=== PATIENT | male | born 1985 | race Caucasian/White ===

== ENCOUNTER 2017-05-08 09:44 | Emergency (ER) | payer MEDICAID ==
[2017-05-08 09:52] VITALS: BP 137/88; PULSE 97; RESP 16; TEMP 97.5; O2SAT 95
[2017-05-08] MEDS ORDERED: FLUORESCEIN SODIUM 1 MG STRIP OP ONE (10:54)
[2017-05-08] MEDS ORDERED: PROPARACAINE 0.5% 15 ML OPHT DROP OP ONE (10:54)
--- NOTE | 2017-05-08 11:13 | EDPHY ---
H & P Smoking Status: Current every day smoker Time Seen by Provider: 05/08/17 10:53 HPI/ROS: CHIEF COMPLAINT: Foreign body sensation left eye HISTORY OF PRESENT ILLNESS: 32-year-old male with no corrective lens use history complaining of foreign body sensation when he was walking by a branch that impacted him in the left eye. No visual acuity changes. Occurred shortly prior to arrival. Tetanus is up-to-date. PHYSICAL EXAM (Prior to examination, patient consented to physical exam, hands were washed and my usual and customary physical exam procedures followed) 1) GENERAL: Well-developed, well-nourished, alert and oriented. Appears to be in no acute distress. 2) HEAD: Normocephalic 3) ENT: sclera anicteric 4) LUNGS: Breathing comfortably. 5) OCULAR EXAM: Visual Acuity: noted from Nurse's notes. Pupils:equal round and reactive to light EOMI Lids: no edema or swelling, upper and lower lids were everted and no foreign bodies were visualized, no areas of increased fluorescein uptake. Skin: no proptosis, no periorbital erythema or swelling, no vesicles, no pain with extraocular movements. Conjunctivae: not injected, no discharge, negative Donya test. Cornea: there is a would appearing foreign body at the 5 o'clock position which is removed with an 18 gauge needle. Subsequent floor seen examination reveals an area of uptake at this position with negative Donya. Anterior chamber:normal, no hyphema or hypopyon (Cm,D Elsa) Constitutional: Initial Vital Signs Temperature (C) 36.4 C 05/08/17 09:50 Heart Rate 97 05/08/17 09:50 Respiratory Rate 16 05/08/17 09:50 Blood Pressure 137/88 H 05/08/17 09:50 O2 Sat (%) 95 05/08/17 09:50 O2 Delivery Mode Room Air Allergies/Adverse Reactions: No Known Allergies Allergy (Unverified 11/02/15 23:45) Home Medications: Medication Instructions Recorded NK [No Known Home Meds] 11/02/15 MDM/Departure - MDM Medications Given: Discontinued Medications Fluorescein Sodium (Qgqno-M-Gizbk) 1 mg OP EDNOW ONE Stop: 05/08/17 10:55 Last Admin: 05/08/17 11:25 Dose: 1 mg Ofloxacin (Ocuflox 0.3% Opht Drops Prepack) 1 btl TAKEHOME EDNOW ONE Stop: 05/08/17 11:16 Last Admin: 05/08/17 11:44 Dose: 1 btl Proparacaine HCl (Alcaine 0.5%) 1 drops OP EDNOW ONE Stop: 05/08/17 10:55 Last Admin: 05/08/17 11:25 Dose: 1 drops ED Course/Re-evaluation: This patient had a foreign body at the 5 o'clock position with no evidence of ruptured globe. This foreign body was removed by myself. No other foreign bodies are visualized in the upper lower lids. He is started on prophylactic antibiotics and recommend follow up with Ophthalmology on-call in 24 hours. He is comfortable with this plan.Care of patient under supervision of secondary supervising physician Dr Jordan . (Delta Pabon) The patient was evaluated and managed by the physician activity assistant. I have reviewed this chart and I agree with the findings and plan of care as documented , as indicated by my signature. I am the secondary supervising physician. ( Pattie Jordan) - Depart Disposition: Home, Routine, Self-Care Clinical Impression: Foreign body of left eye Qualifiers: Encounter type: initial encounter Qualified Code(s): T15.92XA - Foreign body on external eye, part unspecified, left eye, initial encounter Condition: Good Instructions: Ofloxacin (Into the eye), Eye Foreign Body (ED) Additional Instructions: Return to the ER if you develop new or worsening symptoms or any other symptoms that concern you. Referrals: Margaret Aguillon MD [Medical Doctor] - 1 day without fail
[2017-05-08] MEDS ORDERED: OFLOXACIN 0.3% SOLN PREPACK OPHT.BTL TAKEHOME ONE (11:15)
== END 2017-05-08 12:04 | disposition home or self-care (01) ==
PROC: 08C1XZZ Extirpation of Matter from Left Eye, External Approach (ICD-10-PCS; principal; 2017-05-08)
DX: T15.02XA Foreign body in cornea, left eye, initial encounter (principal); F17.200 Nicotine dependence, unspecified, uncomplicated; X58.XXXA Exposure to other specified factors, initial encounter

== ENCOUNTER 2017-11-25 11:40 | Emergency (ER) | payer MEDICAID ==
[2017-11-25] MEDS ORDERED: TDAP ADULT 0.5 ML INJ (BOOSTRIX) IM ONE (12:05)
--- NOTE | 2017-11-25 12:14 | EDPHY ---
H & P Stated Complaint: Lacerated R arm metal sheeting Time Seen by Provider: 11/25/17 12:06 HPI/ROS: HPI: This is a 32-year-old male who presents with Chief Complaint: Lacerated R arm metal sheeting Location: Right upper arm Quality: Laceration Duration: Prior to arrival Signs and Symptoms: + bleeding, no radiation, no numbness, no weakness, no tingling, no incontinence, no decreased range of motion, no swelling, no pain, no fever Timing: Acute Severity: Moderate Context: Patient is right-hand dominant, presents with accidentally cutting his right upper arm just above his elbow joint prior to arrival. Patient was standing on a ladder cleaning out his gutter which when he lost his balance and started to fall. He reports that he scraped his right upper arm on the metal gutter. He reports that he felt immediate, constant, moderate pain and then started to bleed. He applied direct pressure and was able to walk down the ladder and drive himself to the emergency room. Tetanus status unknown. Denies any paresthesias/weakness/decreased range of motion. Modifying Factors: Direct pressure Comment: ROS: see HPI Constitutional: No fever, no chills, no weight loss Eyes: No blurred vision Respiratory: No shortness of breath, no cough Cardiovascular: No chest pain Gastrointestinal: No nausea, no vomiting no diarrhea Genitourinary: No dysuria Extremities: No myalgias Neurologic: No weakness, no numbness Skin: No rashes Hematologic: No bruising, no bleeding MEDICAL/SURGICAL/SOCIAL HISTORY: Medical history: Generally healthy. Does not take any regular medications. Surgical history: Denies Social history: Current every day smoker. Employed. CONSTITUTIONAL: Polite and cooperative adult white male, awake and alert, no obvious distress HEENT: Atraumatic and normocephalic. NECK: supple, no midline tenderness, flexion 45 degrees, extension 45 degrees, right and left lateral flexion 45 degrees. No meningismus. Cardiovascular: Normal S1/S2, regular rate, regular rhythm, without murmur rub or gallop. PULMONARY/CHEST: Symmetrical and nontender. no crepitus. Clear to auscultation bilaterally. Good air movement. No accessory muscle usage. ABDOMEN: Soft, nondistended, nontender, no ecchymosis. PELVIC: no pain with rocking; bilateral hips flexion 125 degrees, extension 30 degrees, with no pain internal rotation and no pain external rotation. BACK: No midline tenderness, no paraspinous spasm, deep tendon reflexes 2/2, no pain with straight leg raise, No foot drop. Achilles reflexes are equal bilaterally. Able to walk on heels and toes without difficulty. EXTREMITIES: 2/2 pulses, strength 5/5, right upper arm 3 in above the elbow joint shows 10 cm x 3 cm, deep, complex laceration. Right ELBOW: Full extension to 180, flexion to 150, no tenderness over medial epicondyle, no tenderness over lateral epicondyle, no effusion. DIP/PIP/MCP flexion/extension intact with good light touch sensation. no deformities, no clubbing, no cyanosis or edema. NEUROLOGICAL: no focal neuro deficits. GCS 15. Light touch sensation intact. SKIN: Warm and dry, no erythema. no rash. Good capillary refill. Source: Patient Exam Limitations: No limitations - Personal History Current Tetanus/Diphtheria Vaccine: Unsure Current Tetanus Diphtheria and Acellular Pertussis (TDAP): Unsure - Medical/Surgical History Hx Asthma: No Hx Chronic Respiratory Disease: No Hx Diabetes: No Hx Cardiac Disease: No Hx Renal Disease: No Hx Cirrhosis: No Hx Alcoholism: No Hx HIV/AIDS: No Hx Splenectomy or Spleen Trauma: No Other PMH: denies - Social History Smoking Status: Current every day smoker Constitutional: Initial Vital Signs Temperature (C) 37.0 C 11/25/17 11:50 Heart Rate 88 11/25/17 11:50 Respiratory Rate 20 11/25/17 11:50 Blood Pressure 168/82 H 11/25/17 11:50 O2 Sat (%) 98 11/25/17 11:50 O2 Delivery Mode Room Air Allergies/Adverse Reactions: No Known Allergies Allergy (Unverified 11/02/15 23:45) Home Medications: Medication Instructions Recorded NK [No Known Home Meds] 11/02/15 Medical Decision Making Procedures: Procedure: Laceration repair. Verbal consent was obtained from the patient. The right upper arm 3 in above the elbow joint shows 10 cm x 3 cm, deep, complex laceration. was anesthetized in the usual fashion using 10 mL of 0.5% bupivacaine with epinephrine. The wound was irrigated, draped and explored to its base with a gloved finger. Was accessory capillary injury that needed to be tied off with a silk. No tendon injury was identified. The wound was repaired with 2 layer closure; #8, 4 0 Vicryl horizontal buried sutures and on the subcutaneous #18 4 0 Prolene in simple interrupted pattern. Xeroform and clean sterile dressing applied. The procedure was performed by myself. Procedure: Splint placement. A long-arm posterior splint and sling was applied by the Emergency Room hazmat technician. After application of the splint I returned and re-examined the patient. The splint was adequately immobilizing the joint and distal to the splint the patient's circulation and sensation was intact. ED Course/Re-evaluation: Tetanus booster given. Laceration repaired using a 2 layer closure and capillary tie off. Placed in posterior long-arm splint for immobilization for the next 3 days to prevent wound dehiscence and given sling. Verbal and written wound care instructions provided No signs of neurovascular compromise/tenting of skin/compartment syndrome/ extremities and joints examined above and below area of concern and are neurovascularly intact. Work note provided per request. No signs of neurovascular compromise/tenting of skin/compartment syndrome/ extremities and joints examined above and below area of concern and are neurovascularly intact. This patient was seen under the supervision of my secondary supervising physician. I evaluated care for this patient independently. Discussed this patient with Dr. Rose who did not see the patient. Differential Diagnosis: Differential diagnosis includes but is not limited to laceration, nerve injury, tendon injury, joint involvement. - Data Points Medications Given: Discontinued Medications Diphtheria/Tetanus/Acell Pertussis (Boostrix) 0.5 ml IM .ONCE ONE Stop: 11/25/17 12:06 Last Admin: 11/25/17 12:14 Dose: 0.5 ml Departure - Departure Disposition: Home, Routine, Self-Care Clinical Impression: Laceration of right upper arm without complication Qualifiers: Encounter type: initial encounter Qualified Code(s): S41.111A - Laceration without foreign body of right upper arm, initial encounter Condition: Good Instructions: Care For Your Stitches (ED), Laceration (ED) Additional Instructions: Keep the splint dry and in place for 3 days. After 3 days, you may remove the splint and dressing; wash the site daily with mild soap and water; then pat dry. Take Tylenol 650 mg every 4 hours and/or Ibuprofen 600 mg every 8 hours with food as needed for pain. If at any time you have numbness or any concerns, follow-up with Orthopedics for further evaluation. Wound Care Follow-Up: Removal of sutures in [10-14] days. Suture removal is complimentary in uncomplicated cases. Infection or abnormal findings would require reevaluation by the MD. In that case, you may be billed. Return to the ER immediately if you experience new or worsening pain, discoloration, numbness, tingling, or any other symptoms that concern you. Referrals: Rhina Whipple MD [Medical Doctor] - Follow Up Only If Needed
[2017-11-25 13:33] VITALS: BP 142/89
== END 2017-11-25 13:32 | disposition home or self-care (01) ==
PROC: 0HQHXZZ Repair Right Upper Leg Skin, External Approach (ICD-10-PCS; principal; 2017-11-25)
DX: S41.111A Laceration without foreign body of right upper arm, initial encounter (principal); F17.200 Nicotine dependence, unspecified, uncomplicated; Z23 Encounter for immunization; W26.8XXA Contact with other sharp object(s), not elsewhere classified, initial encounter; Y99.8 Other external cause status
CPT/HCPCS: A4565

== ENCOUNTER 2017-12-19 09:39 | Emergency (ER) | payer MEDICAID ==
--- NOTE | 2017-12-19 10:14 | EDPHY ---
H & P Time Seen by Provider: 12/19/17 10:00 HPI/ROS: CHIEF COMPLAINT: Toothache times several days HISTORY OF PRESENT ILLNESS: 32-year-old male with no primary care provider or primary dentist complaining of left molar pain for the past several days. No fetid odor. No trismus or drooling. No fever or chills. No change in voice. PHYSICAL EXAM (Prior to examination, patient consented to physical exam, hands were washed and my usual and customary physical exam procedures followed) 1) GENERAL: Well-developed, well-nourished, alert and oriented. Appears to be in no acute distress. 2) HEAD: Normocephalic 3) HEENT: sclera anicteric . Teeth 18 and 19 are tender to percussion with no signs of apical abscess, floor of mouth soft no evidence of Florin's angina, submental and submandibular spaces are soft no induration no tenderness. Facial features are symmetrical , nasolabial fold symmetrical. No facial swelling. 4) LUNGS: Breathing comfortably. Smoking Status: Current every day smoker Constitutional: Initial Vital Signs Temperature (C) 37 C 12/19/17 09:45 Heart Rate 100 12/19/17 09:45 Respiratory Rate 16 12/19/17 09:45 Blood Pressure 168/107 H 12/19/17 09:45 O2 Sat (%) 97 12/19/17 09:45 O2 Delivery Mode Room Air Allergies/Adverse Reactions: No Known Allergies Allergy (Verified 12/19/17 09:44) Home Medications: Medication Instructions Recorded Amoxicillin Trihydrate 500 mg PO Q8 7 Days cap 12/19/17 [Amoxicillin 500mg cap] Ibuprofen [Motrin (*)] 800 mg PO Q6 #15 tab 12/19/17 MDM/Departure - MDM Procedures: Procedure dental nerve block ED Course/Re-evaluation: Doubt Florin's angina, doubt deep space infection. Not think that imaging studies are indicated. Dental nerve block performed by myself resulting in local anesthesia and patient feeling improvement. He will need follow-up with dental aid. Started on antibiotics. Given follow-up information. Given usual and customary discharge precautions and information. He feels comfortable being discharged. I saw this patient independently based on established practice protocols. Care of patient under supervision of primary Supervising physician Dr Daniels . - Depart Disposition: Home, Routine, Self-Care Clinical Impression: Odontalgia Condition: Good Instructions: Toothache (ED) Additional Instructions: Return to the ER immediately if you cannot swallow, have drooling, fevers, neck stiffness, cannot open your jaw, or any other symptoms that concern you. Prescriptions: Amoxicillin Trihydrate [Amoxicillin 500mg cap] 500 mg PO Q8 7 Days cap Ibuprofen [Motrin (*)] 800 mg PO Q6 #15 tab Referrals: Dental Aid [Outside] - As per Instructions
[2017-12-19 10:28] VITALS: BP 164/96
== END 2017-12-19 10:28 | disposition home or self-care (01) ==
PROC: 3E0X3BZ Introduction of Anesthetic Agent into Cranial Nerves, Percutaneous Approach (ICD-10-PCS; principal; 2017-12-19)
DX: K08.89 Other specified disorders of teeth and supporting structures (principal); F17.200 Nicotine dependence, unspecified, uncomplicated

== ENCOUNTER 2018-05-31 18:25 | Emergency (ER) | payer MEDICAID ==
--- NOTE | 2018-05-31 18:48 | EDPHY ---
H & P Stated Complaint: SLIPPED ON ICE AT 4PM IMPACTED COCCYX/DENIES OTHER INJ Time Seen by Provider: 05/31/18 18:44 HPI/ROS: CHIEF COMPLAINT: Tailbone injury HISTORY OF PRESENT ILLNESS: Patient is a 33-year-old man who slipped on the ice and fell in a sitting position. He had immediate pain to his tailbone. He states that it is now been 2-3 hours and the pain is not improved. No weakness or numbness. He is able to ambulate without difficulty but has pain when sitting. No bowel or bladder abnormalities. He did not hit his head. No neck pain. He has not taken any pain medications. Severity: Moderate Modifying factors: None REVIEW OF SYSTEMS: Constitutional: denies: chills, fever, recent illness, recent injury EENTM: denies: blurred vision, double vision, nose congestion Respiratory: denies: cough, shortness of breath Cardiac: denies: chest pain, irregular heart rate, lightheadedness, palpitations Gastrointestinal/Abdominal: denies: abdominal pain, diarrhea, nausea, vomiting, blood streaked stools Genitourinary: denies: dysuria, frequency, hematuria, pain Musculoskeletal: See HPI Skin: denies: lesions, rash, jaundice, bruising Neurological: denies: headache, numbness, paresthesia, tingling, dizziness, weakness Hematologic/Lymphatic: denies: blood clots, easy bleeding, easy bruising Immunologic/allergic: denies: HIV/AIDS, transplant 10 systems reviewed and negative except as noted EXAM: GENERAL: Well-appearing, well-nourished and in no acute distress. HEAD: Atraumatic, normocephalic. EYES: Pupils equal round and reactive to light, extraocular movements intact, sclera anicteric, conjunctiva are normal. ENT: TMs normal, nares patent, oropharynx clear without exudates. Moist mucous membranes. NECK: Normal range of motion, supple without lymphadenopathy or JVD. LUNGS: Breath sounds clear to auscultation bilaterally and equal. No wheezes rales or rhonchi. HEART: Regular rate and rhythm without murmurs, rubs or gallops. ABDOMEN: Soft, nontender, normoactive bowel sounds. No guarding, no rebound. No masses appreciated. BACK: No CVA tenderness, no spinal tenderness, step-offs or deformities EXTREMITIES: Pain to the tailbone area, no obvious swelling or deformity. Ambulates without difficulty. NEUROLOGICAL: Cranial nerves II through XII grossly intact. Normal speech, normal gait. 5/5 strength, normal movement in all extremities, normal sensation , normal reflexes PSYCH: Normal mood, normal affect. SKIN: Warm, dry, normal turgor, no visible rashes or lesions. Source: Patient Exam Limitations: No limitations - Personal History Current Tetanus Diphtheria and Acellular Pertussis (TDAP): Yes - Medical/Surgical History Hx Asthma: No Hx Chronic Respiratory Disease: No Hx Diabetes: No Hx Cardiac Disease: No Hx Renal Disease: No Hx Cirrhosis: No Hx Alcoholism: No Hx HIV/AIDS: No Hx Splenectomy or Spleen Trauma: No Other PMH: denies - Family History Significant Family History: No pertinent family hx - Social History Smoking Status: Former smoker Alcohol Use: Sober Constitutional: Initial Vital Signs Temperature (C) 36.6 C 05/31/18 18:29 Heart Rate 94 05/31/18 18:29 Respiratory Rate 17 05/31/18 18:29 Blood Pressure 145/98 H 05/31/18 18:29 O2 Sat (%) 96 05/31/18 18:29 O2 Delivery Mode Room Air Allergies/Adverse Reactions: No Known Allergies Allergy (Verified 05/31/18 18:28) Home Medications: Medication Instructions Recorded NK [No Known Home Meds] 05/31/18 Medical Decision Making - Diagnostics Imaging: Discussed imaging studies w/ call taker Radiologist ED Course/Re-evaluation: Patient does appear to have a broken tailbone. We discussed comfort measures including sitting on a donut, taking anti-inflammatories and ice. Patient understands and agrees with this plan. He declines further workup or testing. Differential Diagnosis: Partial list of the Differential diagnosis considered include but were not limited to; contusion, fracture and although unlikely based on the history and physical exam, I also considered assault, infection. I discussed these differential diagnoses and the plan with the patient as well as the usual and expected course. The patient understands that the diagnosis is provisional and that in medicine we are not always correct and that further workup is often warranted. Usual and customary warnings were given. All of the patient's questions were answered. The patient was instructed to return to the emergency department should the symptoms at all worsen or return, otherwise to followup with the physician as we discussed. - Data Points Medications Given: Discontinued Medications Ibuprofen (Motrin) 800 mg PO EDNOW ONE Stop: 05/31/18 19:10 Last Admin: 05/31/18 19:11 Dose: 800 mg Departure - Departure Disposition: Home, Routine, Self-Care Clinical Impression: Sacral fracture, closed Qualifiers: Encounter type: initial encounter Zone of sacrum fracture: unspecified portion of sacrum Qualified Code(s): S32.10XA - Unspecified fracture of sacrum, initial encounter for closed fracture Condition: Fair Instructions: Sacral Fracture (ED) Referrals: NONE *PRIMARY CARE P,. [Primary Care Provider] - As per Instructions Ed Duval MD [Medical Doctor] - As per Instructions
[2018-05-31] MEDS ORDERED: IBUPROFEN 800 MG TAB PO ONE (19:09)
[2018-05-31 19:20] VITALS: BP 150/92
== END 2018-05-31 19:17 | disposition home or self-care (01) ==
DX: S32.10XA Unspecified fracture of sacrum, initial encounter for closed fracture (principal); W00.0XXA Fall on same level due to ice and snow, initial encounter; Y92.9 Unspecified place or not applicable; Y93.9 Activity, unspecified; Y99.9 Unspecified external cause status

== ENCOUNTER 2018-10-26 09:51 | Emergency (ER) | payer MEDICAID ==
--- NOTE | 2018-10-26 09:58 | EDPHY ---
H & P Stated Complaint: LUE swelling Time Seen by Provider: 10/26/18 09:58 - Personal History Current Tetanus/Diphtheria Vaccine: Yes - Medical/Surgical History Hx Asthma: No Hx Chronic Respiratory Disease: No Hx Diabetes: No Hx Cardiac Disease: No Hx Renal Disease: No Hx Cirrhosis: No Hx Alcoholism: No Hx HIV/AIDS: No Hx Splenectomy or Spleen Trauma: No Other PMH: denies - Social History Smoking Status: Current some day smoker Constitutional: Initial Vital Signs Heart Rate 104 H 10/26/18 09:53 Respiratory Rate 16 10/26/18 09:53 Blood Pressure 169/105 H 10/26/18 09:53 O2 Sat (%) 97 10/26/18 09:53 O2 Delivery Mode Room Air Allergies/Adverse Reactions: No Known Allergies Allergy (Verified 10/26/18 09:55) Home Medications: Medication Instructions Recorded Ibuprofen [Motrin] 800 mg PO Q8 #20 tab 10/26/18 Medical Decision Making - Diagnostics Imaging Results: Imaging Impressions Extremity Venous Study 10/26/18 10:02 Impression: No evidence of DVT. Findings discussed with Armen Rose MD 10/26/2018 at 10:45. Imaging: Discussed imaging studies w/ call center agent Radiologist, I viewed and interpreted images myself ED Course/Re-evaluation: CHIEF COMPLAINT: Left arm pain and swelling HISTORY OF PRESENT ILLNESS: The patient is a 33 y/o male complaining of worsening left forearm swelling and pain onset 3 days ago. He was more active that day, but cannot think of a specific movement or activity that could have caused the pain. As the pain has become worse, he has had more limited mobility. He denies IV drug use, insect bites, or breaks in the skin. No fever, headache, body aches, lightheadedness, chest pain, heart palpitations, shortness of breath, cough, abdominal pain, urinary or bowel complaints, numbness, paresthesias. REVIEW OF SYSTEMS: A comprehensive 10 system review of systems is otherwise negative aside from elements mentioned in the history of present illness and medical decision making. PHYSICAL EXAM: HR, BP, O2 Sat, RR. Temp noted General Appearance: Alert, well hydrated, appropriate, and non-toxic appearing. Head: Atraumatic without scalp tenderness or obvious injury Eyes: Pupils equal, round, reactive to light and accommodation, EOMI, no trauma , no injection. Ears: Clear bilaterally, no perforation, normal landmarks Nose: Atraumatic, no rhinorrhea, clear. Throat: There is no erythema or exudates, no lesions, normal tonsils, mucus membranes moist. Neck: Supple, 2+ carotid upstroke, nontender, no lymphadenopathy. Respiratory: No retractions, no distress, no wheezes, and no accessory muscle use. Lungs are clear to auscultation bilaterally. Cardiovascular: Regular rate and rhythm, no murmurs, rubs, or gallops. Bilateral carotid, radial, dorsalis pedis, and posterior tibial pulses intact. Good capillary refill all extremities. Gastrointestinal: Abdomen is soft, nontender, non-distended, no masses, no rebound, no guarding, no peritoneal signs. Musculoskeletal: Firm and swollen left forearm. No signs of trauma. Otherwise normal active ROM of all extremities, atraumatic. Neurological: Alert, appropriate, and interactive. The patient has normal DTRs and non-focal cranial nerves, motor, sensory, and cerebellar exam. Skin: No rashes, good turgor, no nodules on palpation. Past medical history: Denies Past surgical history: Denies Family history: Denies Social history: Lives in [place], single, self-employed DIAGNOSTICS/PROCEDURES/CRITICAL CARE TIME: Left upper extremity US: No acute findings. Left upper extremity MRI: Myositis and edema of the dorsal forearm muscles DIFFERENTIAL DIAGNOSIS: The differential diagnosis for the patient's arm swelling included but was not limited to hypoalbuminemia, congestive heart failure, cor pulmonale, venous stasis, trauma, and DVT. MEDICAL DECISION MAKING: The patient is a 33 y/o male presenting with worsening left forearm swelling and pain causing more limited ROM, onset 3 days ago. He was more active that day , but cannot think of a specific movement or activity that could have caused the pain. As the pain has become worse, he has had more limited mobility. He denies IV drug use, insect bites, or breaks in the skin. No fever, On exam he has a firm and swollen left forearm. Patient will need an US and then an MRI if there are no significant findings. 1047: I spoke with Dr. Wallis, radiologist, regarding this patient. There are not acute findings on the US; left upper extremity MRI ordered. 1054: Reassessed patient and discussed imaging findings. He is comfortable with plan for MRI. 1336: I spoke with Dr. Wallis, who reports that the patient has myositis and edema of the dorsal forearm muscles. 6mg PO Decadron administered. 1337: Reassessed patient and discussed imaging findings. I have advised him to take Motrin as directed and follow up with an orthopedic surgeon. Return precautions provided; patient is comfortable with this plan. Departure - Departure Disposition: Home, Routine, Self-Care Clinical Impression: Pain and swelling of forearm Qualifiers: Laterality: left Qualified Code(s): M79.632 - Pain in left forearm Myositis Qualifiers: Myositis type: unspecified type Myositis location: forearm Laterality: left Qualified Code(s): M60.832 - Other myositis, left forearm Condition: Good Instructions: Arm Pain (ED) Additional Instructions: 1. Rest, ice, elevation. 2. Follow up with an orthopedic surgeon within one week. 3. Return to the emergency department for worsening pain, swelling, numbness, weakness or other concerns. 4. Use ibuprofen as directed for pain. Referrals: Rio Breen MD [Medical Doctor] - As per Instructions NONE *PRIMARY CARE P,. [Primary Care Provider] - As per Instructions Prescriptions: Ibuprofen [Motrin] 800 mg PO Q8 #20 tab Report Scribed for: Armen Rose Report Scribed by: Elodia Herring Date of Report: 10/26/18 Time of Report: 11:23
[2018-10-26] MEDS ORDERED: DEXAMETHASONE 10 MG/ML VIAL PO ONE (13:35)
[2018-10-26 13:47] VITALS: BP 121/78
== END 2018-10-26 13:46 | disposition home or self-care (01) ==
DX: M60.832 Other myositis, left forearm (principal)
CPT/HCPCS: J1100